=== PATIENT | male | born 1970 | race Caucasian/White ===

== ENCOUNTER 2016-09-27 14:10 | Emergency (ER) | payer SELFPAY ==
[2016-09-27 14:13] VITALS: BMI 31.6
--- NOTE | 2016-09-27 14:28 | DR.CP ---
HPI - Time Seen Time seen: 12:15 - PCP Primary Care Physician: Karoline RUSH - Complaint Chief Complaint Doctor Comments: I agree with statement. Patient admits to right sided chest pain radiating to neck now pain free. Admits to brother of heart attack. He admits to a 3ppd smoking for 30 years. Chief Complaint:: RIGHT SIDED CHEST PAIN THAT RADIATES UP TO RIGHT SIDE OF NECK. PT. BEGAN ABOUT 30 MINUTES [employer]. - Source History Provided: Patient - Mode of Arrival Mode of Arrival: Ambulatory - Timing Onset of Chief Complaint: 09/27/16 Came on: Suddenly - Duration Duration: Since Onset (30 minutes) - Location Location of Chest Pain: Right Chest Pain Radiation Location: Neck - Context Cardiac Risk Factors: Smoker History of: None Prehospital Care: None - Quality Quality: Sharp - Severity Severity: Moderate - Modifying Factors Worsens: Nothing - Associated Signs and Symptoms Associated Signs and Symptoms: Diaphoresis (admits to being daiana) PMH - PMH Past Medical History: Yes Past Medical History: Dyslipidemia, Hypertension Past Surgical History: Yes Surgical History: Other Past Surgical History Comment: HERNIA - Family History History of Family Medical Conditions: Yes Family Medical History: DC, Coronary Artery Disease, Hypertension - Social History Does patient currently use any type of tobacco product: Yes Have you used tobacco products in the last 12 months: Yes Type of Tobacco Use: Cigarettes How many years tobacco product used: 30 Does any household member use tobacco: No Alcohol Use: Heavy Do you use any recreational Drugs:: No Lives With: Family Lives Where: Home - infectious screening In the last 2 months have you had wt loss of >10#?: NO Have you had fever, night sweats or hemotysis?: No Have you traveled outside the country in the last 6 months?: No Isolation: Standard ROS - Review of Systems Constitutional: Diaphoresis Eyes: No Symptoms Reported ENTM: No Symptoms Reported Respiratoy: No Symptoms Reported Cardiovascular: No Symptoms Reported Gastrointestinal/Abdominal: No Symptoms Reported Genitourinary: No Symptoms Reported Neurological: No Symptoms Reported Musculoskeletal: No Symptoms Reported Integumentary: No Symptoms Reported Hematologic/Lymphatic: No Symptoms Reported Endocrine: No Symptoms Reported Psychiatric: No Symptoms Reported All Other Systems: Reviewed and Negative PE - Vitals Vitals: Temperature 98.1 F Pulse Rate [Apical] 92 Pulse Rate 95 Respiratory Rate 21 Blood Pressure [Right Arm] 153/91 Blood Pressure 173/101 O2 Sat by Pulse Oximetry 96 - General Limitations: No Limitations General Appearance: Alert, In No Apparent Distress - Head Head Exam: Normal Inspection, Atraumatic - Eyes Eye exam: Normal Appearance, PERRL, EOMI - ENT ENT Exam: Normal Exam - Chest Chest Inspection: Normal Inspection - Respiratory Respiratory Exam: Normal Lung Sounds Bilat Respiratory Exam: Bilateral Clear to Auscultation - Cardiovascular Cardiovascular Exam: Regular Rate, Normal Rhythm Pulse: Normal - Abdominal Exam Abdominal Exam: Normal Inspection, Normal Bowel Sounds Abdominal Tenderness: negative: RUQ, RLQ, LUQ, LLQ, Epigastrium, Suprapubic, Diffuse, Mild, Moderate, Severe, Other - Extremities Extremities Exam: Normal Inspection - Back Back Exam: Normal Inspection, Full ROM - Neurologic Neurological Exam: Alert, Oriented X3, CN II-XII Intact - Psychiatric Psychiatric Exam: Normal Affect - Skin Skin Exam: Warm, Dry, Intact Course - Reevaluation 1st: Improved ROR - Labs Reviewed Laboratory Results Reviewed?: Yes (cardiacs negative) Result Diagrams: 09/27/16 14:33 09/27/16 14:33 Laboratory: WBC 7.3 X10^3/uL (3.6-10.0) 09/27/16 14:33 RBC 5.59 X10^6/uL (4.7-6.0) 09/27/16 14:33 Hgb 16.5 g/dL (13.5-18.0) 09/27/16 14:33 Hct 48.3 % (42.0-54.0) 09/27/16 14:33 MCV 86.4 fL (80.0-100.0) 09/27/16 14:33 MCH 29.5 pg (27.0-34.0) 09/27/16 14:33 MCHC 34.2 g/dL (33.0-35.0) 09/27/16 14:33 RDW 15.4 % (11.6-16.5) 09/27/16 14:33 Plt Count 220 X10^3/uL (150.0-450.0) 09/27/16 14:33 MPV 9.7 fL (7.4-11.0) 09/27/16 14:33 Neut % 64.1 % (42.0-75.0) 09/27/16 14:33 Lymph % 23.0 % (21.0-51.0) 09/27/16 14:33 [place] % 9.4 % (0.0-13.0) 09/27/16 14:33 Eos % 2.6 % (0.9-2.9) 09/27/16 14:33 Baso % 0.9 % (0.2-1.0) 09/27/16 14:33 Neut # 4.7 x10^3/uL (2.2-4.8) 09/27/16 14:33 Lymph # 1.7 X10^3/uL (1.3-2.9) 09/27/16 14:33 [place] # 0.7 x10^3/uL (0.3-0.8) 09/27/16 14:33 Eos # 0.2 x10^3/uL (0.0-0.2) 09/27/16 14:33 Baso # 0.1 X10^3/uL (0.0-0.1) 09/27/16 14:33 Absolute Nucleated RBC 0.1 /100WBC 09/27/16 14:33 INR Target Range - 09/27/16 14:33 INR 1.04 (0.8-1.3) 09/27/16 14:33 PTT 25.1 SECONDS (22.9-36.5) 09/27/16 14:33 PTT Comment - 09/27/16 14:33 Sodium 140 mmol/L (136-145) 09/27/16 14:33 Corrected Sodium 141 mmol/L (136-145) 09/27/16 14:33 Potassium 3.7 mmol/L (3.5-5.1) 09/27/16 14:33 Chloride 103 mmol/L (98-107) 09/27/16 14:33 Carbon Dioxide 29.2 mmol/L (21-32) 09/27/16 14:33 BUN 11 mg/dL (7-18) 09/27/16 14:33 Creatinine 1.01 mg/dL (0.70-1.30) 09/27/16 14:33 Est GFR (MDRD) Af Amer > 60 (>60) 09/27/16 14:33 Est GFR (MDRD) Non-Af > 60 (>60) 09/27/16 14:33 Glucose 137 mg/dL (65-99) H 09/27/16 14:33 Calcium 8.3 mg/dL (8.5-10.1) L 09/27/16 14:33 Corrected Calcium TNP 09/27/16 14:33 Phosphorus 3.3 mg/dL (2.6-4.7) 09/27/16 14:33 Magnesium 1.9 mg/dL (1.7-2.9) 09/27/16 14:33 Total Bilirubin 0.40 mg/dL (0.2-1.0) 09/27/16 14:33 AST 30 Units/L (15-37) 09/27/16 14:33 ALT 67 Units/L (12-78) 09/27/16 14:33 Alkaline Phosphatase 109 Units/L (46-116) 09/27/16 14:33 Creatine Kinase 145 Units/L (39-308) 09/27/16 14:33 CK-MB (CK-2) 1.2 ng/mL (0-4.0) 09/27/16 14:33 CK/CKMB % Calc 0.8 % (<4) 09/27/16 14:33 Troponin I < 0.02 ng/mL (0-1.5) 09/27/16 14:33 Total Protein 7.5 g/dL (6.4-8.2) 09/27/16 14:33 Albumin 3.7 g/dL (3.4-5.0) 09/27/16 14:33 Globulin 3.8 g/dL (2.5-4.5) 09/27/16 14:33 Albumin/Globulin Ratio 1.0 Ratio (1.1-2.1) L 09/27/16 14:33 Specimen Type Clean catch urine 09/27/16 15:04 Urine Color Dark yellow (YELLOW) 09/27/16 15:04 Urine Appearance Clear (CLEAR) 09/27/16 15:04 Urine pH 6.5 (5.0 - 8.0) 09/27/16 15:04 Ur Specific [place] 1.020 (1.000-1.030) 09/27/16 15:04 Urine Protein Negative (NEGATIVE) 09/27/16 15:04 Urine Glucose (UA) Negative (NEGATIVE) 09/27/16 15:04 Urine Ketones Negative (NEGATIVE) 09/27/16 15:04 Urine Occult Blood Negative (NEGATIVE) 09/27/16 15:04 Urine Nitrite Negative (NEGATIVE) 09/27/16 15:04 Urine Bilirubin Negative (NEGATIVE) 09/27/16 15:04 Urine Urobilinogen 2+ (NORMAL) 09/27/16 15:04 Ur Leukocyte Esterase Negative (NEGATIVE) 09/27/16 15:04 Urine RBC 0-1 /HPF (NEGATIVE) 09/27/16 15:04 Urine WBC 0-1 /HPF (NEGATIVE) 09/27/16 15:04 Ur Squamous Epith Cells Rare /HPF (NEGATIVE) 09/27/16 15:04 Urine Bacteria Trace /HPF (NEGATIVE) 09/27/16 15:04 Urine Mucus Few /HPF (NEGATIVE) 09/27/16 15:04 Ur Culture Indicated? No/not indicated 09/27/16 15:04 - XRAY XRAY Interpreted by: Radiologist (Chest negative) - EKG Rhythm: NSR - Diagnosis Discharge Problem: Chest pain Qualifiers: Chest pain type: unspecified Qualified Code(s): R07.9 - Chest pain, unspecified - Discharge Plan Condition: Stable - Follow ups/Referrals Follow ups/Referrals: ERYN RUSH [Primary Care Provider] - 3 days - Instructions
[2016-09-27 14:42] LABS: BASOPHILS # (AUTO) 0.1 X10^3/uL (0.0-0.1); BASOPHILS % (AUTO) 0.9 % (0.2-1.0); EOSINOPHILS # (AUTO) 0.2 x10^3/uL (0.0-0.2); EOSINOPHILS % (AUTO) 2.6 % (0.9-2.9); HEMATOCRIT 48.3 % (42.0-54.0); HEMOGLOBIN 16.5 g/dL (13.5-18.0); LYMPHOCYTES # (AUTO) 1.7 X10^3/uL (1.3-2.9); MEAN CORPUSCULAR HEMOGLOBIN 29.5 pg (27.0-34.0); MEAN CORPUSCULAR HGB CONC 34.2 g/dL (33.0-35.0); MEAN CORPUSCULAR VOLUME 86.4 fL (80.0-100.0); MEAN PLATELET VOLUME 9.7 fL (7.4-11.0); MONOCYTES # (AUTO) 0.7 x10^3/uL (0.3-0.8); MONOCYTES % (AUTO) 9.4 % (0.0-13.0); NEUTROPHILS # (AUTO) 4.7 x10^3/uL (2.2-4.8); NEUTROPHILS % (AUTO) 64.1 % (42.0-75.0); PLATELET COUNT 220 X10^3/uL (150.0-450.0); RED BLOOD COUNT 5.59 X10^6/uL (4.7-6.0); RED CELL DISTRIBUTION WIDTH 15.4 % (11.6-16.5); WHITE BLOOD COUNT 7.3 X10^3/uL (3.6-10.0)
[2016-09-27 14:58] LABS: BLOOD UREA NITROGEN 11 mg/dL (7-18); CALCIUM 8.3 mg/dL (8.5-10.1); CARBON DIOXIDE 29.2 mmol/L (21-32); CHLORIDE 103 mmol/L (98-107); COR NA(FOR HYPERGLY) 141 mmol/L (136-145); CREATININE 1.01 mg/dL (0.70-1.30); GLUCOSE 137 mg/dL (65-99); SODIUM 140 mmol/L (136-145); TROPONIN I < 0.02 ng/mL (0-1.5); eGFR BLACK RACES > 60 (>60); eGFR NON BLACK RACES > 60 (>60)
[2016-09-27 15:02] LABS: ALANINE AMINOTRANSFERASE 67 Units/L (12-78); ALBUMIN 3.7 g/dL (3.4-5.0); ALKALINE PHOSPHATASE 109 Units/L (46-116); ASPARTATE AMINO TRANSFERASE 30 Units/L (15-37); CKMB % 0.8 % (<4); CREATINE KINASE 145 Units/L (39-308); CREATINE KINASE MB 1.2 ng/mL (0-4.0); MAGNESIUM 1.9 mg/dL (1.7-2.9); PHOSPHORUS 3.3 mg/dL (2.6-4.7); TOTAL PROTEIN 7.5 g/dL (6.4-8.2)
--- NOTE | 2016-09-27 15:02 | RAD ---
HISTORY: Chest pain Study: Chest one view Comparison: None Findings: The trachea is midline. The cardiac silhouette is unremarkable. The lungs are free of acute alveol ar infiltrates. No pleural effusions are identified. There is a nodular density projected over the r ight hemidiaphragm in the right lung base possibly representing nipple shadow. Repeat PA film with n ipple markers is recommended.. The bony thorax is unremarkable. IMPRESSION: 1. No acute cardiopulmonary disease. 2. Nodular density in the right lung base as described above possibly a nipple shadow. Repeat PA caro m. Upright with nipple markers is recommended. Reported By:
[2016-09-27 15:07] VITALS: BP 153/91
[2016-09-27 15:14] LABS: BILIRUBIN,URINE NEGATIVE (NEGATIVE); BLOOD/HEMOGLOBIN,URINE NEGATIVE (NEGATIVE); GLUCOSE, URINE NEGATIVE (NEGATIVE); KETONES,URINE NEGATIVE (NEGATIVE); LEUKOCYTE ESTERASE ,URINE NEGATIVE (NEGATIVE); NITRITES,URINE NEGATIVE (NEGATIVE); PH,URINE 6.5 (5.0 - 8.0); PROTEIN,URINE NEGATIVE (NEGATIVE); UROBILINOGEN,URINE 2+ (NORMAL)
[2016-09-27 15:24] LABS: APPEARANCE,URINE CLEAR (CLEAR); BACTERIA,URINE TRACE /HPF (NEGATIVE); COLOR,URINE DARK YELLOW (YELLOW); MUCUS,URINE FEW /HPF (NEGATIVE); RBC,URINE 0-1 /HPF (NEGATIVE); SQUAMOUS EPITHELIAL CELL,UR RARE /HPF (NEGATIVE)
--- NOTE | 2016-09-27 15:43 | RAD ---
Examination: Chest x-ray. Clinical History: Abnormal chest x-ray. Right-sided chest pain radiating up to neck. Technique: PA and lateral views of the chest were obtained. Nipple markers were applied prior to the imaging. Comparison: 09/27/2016 at 2:51 p.m. Findings: The cardiac and mediastinal contours are within normal limits. No pneumothorax or pleural effusion is noted. Nodular opacities are present at the lung bases bilaterally, corresponding with nipple markers, cons istent with nipple shadows. No acute osseous abnormality is noted. Impression: 1. Nodular opacities are present at the lung bases bilaterally, corresponding with nipple markers, c onsistent with nipple shadows. Reported By:
== END 2016-09-27 15:54 | disposition home or self-care (01) ==
LOC: ER 14:31
DX: R07.89 Other chest pain (principal)
CPT/HCPCS: 36415; 71010; 71020; 80053; 81001; 82550; 82553; 83735; 84100; 84484; 85025; 85610; 85730; 93005; 93010; 99282; 99283